=== PATIENT | female | born 1950 | race African-American/Black ===

== ENCOUNTER 2017-12-06 11:12 | Inpatient (IN) ==
[2017-12-06] MEDS ORDERED: SODIUM CHLORIDE 0.9% 500 ML IV STA (11:47)
[2017-12-06 11:54] LABS: Basophils % 0.7 % (0.0-0.8); Eosinophils # 0.1 10*3/uL (0.0-0.87); Hematocrit 24.6 VOL% (35.7-47.0); Hemoglobin 7.5 GM/DL (12.0-16.0); Immature Granulocytes % 0.2 %; Immature Granulocytes Absolute 0.01 #; Lymphocytes # 1.2 10*3/uL (1.4-4.0); Lymphocytes % 20.1 % (21.3-54.2); Mean Corpuscular HGB Conc 30.5 GM/DL (32-36); Mean Corpuscular Hemoglobin 27 PG (27-34); Mean Corpuscular Volume 88.8 FL (87-102); Mean Platelet Volume 10.7 FL (9.6-12.0); Monocytes # 0.6 10*3/uL (0.11-0.8); Monocytes % 10.6 % (1.7-12.7); Neutrophils # 3.9 10*3/uL (1.4-7.4); Neutrophils % 67.4 % (38.7-73.9); Platelet Count 290 T/CUMM (130-400); Red Blood Count 2.77 MC/CUMM (3.8-5.5); White Blood Count 5.7 T/CUMM (4-12)
[2017-12-06 11:59] LABS: INR 1.1; PT Patient Result 11.4 SECS
[2017-12-06 12:18] LABS: Ammonia 28 UMOL/L (11-32)
[2017-12-06 12:26] LABS: Alanine Aminotransferase 10 U/L (13-56); Albumin 3.2 G/DL (3.4-5.0); Alkaline Phosphatase 80 U/L (45-117); Aspartate Amino Transferase 11 U/L (0-37); Blood Urea Nitrogen 33 MG/DL (7-18); Calcium 9.7 MG/DL (8.5-10.1); Glucose 65 MG/DL (74-106); Magnesium 2.1 MG/DL (1.8-2.4); Osmolality,Calculated 279.7 MOS/KG (273-304); Potassium 4.9 MMOL/L (3.5-5.1); Sodium 138 MMOL/L (136-145); Total Protein 6.9 G/DL (6.4-8.3); Troponin I Only < 0.015 NG/ML (0.00-0.045)
[2017-12-06 12:28] LABS: Lactic Acid 3.1 MMOL/L (0.4-2.0)
[2017-12-06 12:40] LABS: Apearance,Urine Slightly Hazy (Clear); Bilirubin,Urine Negative (Negative); Blood, Urine Negative (Negative); Glucose,Urine (UA) Negative (Negative); Hyaline Casts,Urine 1 /LPF (0-3); Ketones,Urine Negative (Negative); Mucus,Urine Occasional /LPF (Occasional); Nitrite,Urine Negative (Negative); Protein,Urine Negative; RBC,Urine 2 /HPF (0-4); Squamous Epithelial Cell,Urine Occasional /HPF (0-10); Urine Color Yellow (Yellow); Urine Specific Gravity 1.009 (1.001-1.035); Urine Urobilinogen < 2.0 EU/DL (0.2-1.0); WBC,Urine 11 /HPF (0-6)
[2017-12-06] MEDS ORDERED: LEVOFLOXACIN INJ 100 ML IV ONE (13:13)
[2017-12-06] MEDS: LEVOFLOXACIN INJ 500 MG in PREMIX 1 EACH IV SCH (13:15)
[2017-12-06] MEDS ORDERED: SODIUM CHLORIDE 0.9% 1,000 ML IV PRN (13:32)
[2017-12-06 14:08] LABS: % Iron Saturation 18.2 % (18-50); Ferritin 180.9 ng/ml (8-252)
[2017-12-06 14:08] LABS: ABG Base Excess 1.2 MMOL/L (-2.5-2.5); ABG HCO3 25.1 MMOL/L (20-26); ABG Oxygen Saturation 96.3 % (95-100); ABG PCO2 36.3 MM HG (35-48); ABG PH 7.457 (7.35-7.45); ABG PO2 87.4 MM HG (80-95); ABG TCO2 26.2 MMOL/L (23-27); Allen Test Positive; Pt O2 Delivery Device Room Air
[2017-12-06] MEDS: SODIUM CHLORIDE 0.9% 1,000 ML IV SCH (15:00)
[2017-12-06] MEDS: PIPERACILLIN/TAZOBACTAM 3,375 MG in SODIUM CHLORIDE 0.9% 100 ML IV SCH ×2 (15:20→22:36)
[2017-12-06] MEDS ORDERED: PIPERACILLIN/TAZOBACTAM 3,375 MG VIAL IV ONE (16:24)
[2017-12-06] MEDS ORDERED: DEXTROSE 50% 25 GM/50 ML VIAL IV ONE (17:21)
[2017-12-06] MEDS: PANTOPRAZOLE 40 MG VIAL IV SCH (21:35)
[2017-12-07] MEDS: SODIUM CHLORIDE 0.9% 1,000 ML IV SCH ×2 (02:11→21:01)
[2017-12-07 06:02] LABS: Basophils # 0.1 10*3/uL (0.0-0.2); Basophils % 0.8 % (0.0-0.8); Eosinophils # 0.1 10*3/uL (0.0-0.87); Eosinophils % 1.3 % (0.00-10.9); Hematocrit 31.3 VOL% (35.7-47.0); Immature Granulocytes % 0.3 %; Immature Granulocytes Absolute 0.02 #; Lymphocytes # 0.8 10*3/uL (1.4-4.0); Lymphocytes % 12.9 % (21.3-54.2); Mean Corpuscular HGB Conc 33.5 GM/DL (32-36); Mean Corpuscular Hemoglobin 28 PG (27-34); Mean Corpuscular Volume 83.7 FL (87-102); Mean Platelet Volume 10.4 FL (9.6-12.0); Monocytes # 0.8 10*3/uL (0.11-0.8); Monocytes % 12.1 % (1.7-12.7); Neutrophils # 4.5 10*3/uL (1.4-7.4); Neutrophils % 72.6 % (38.7-73.9); Platelet Count 242 T/CUMM (130-400); Red Blood Count 3.74 MC/CUMM (3.8-5.5); Red Cell Distribution Width 14.6 % (9.3-17.3); White Blood Count 6.2 T/CUMM (4-12)
[2017-12-07 06:09] LABS: Hemoglobin 10.5 GM/DL (12.0-16.0)
[2017-12-07] MEDS: PIPERACILLIN/TAZOBACTAM 3,375 MG in SODIUM CHLORIDE 0.9% 100 ML IV SCH ×3 (06:10→23:09)
[2017-12-07 06:36] LABS: Alanine Aminotransferase < 9 U/L (13-56); Albumin 2.9 G/DL (3.4-5.0); Alkaline Phosphatase 81 U/L (45-117); Aspartate Amino Transferase 10 U/L (0-37); Blood Urea Nitrogen 26 MG/DL (7-18); Calcium 8.7 MG/DL (8.5-10.1); Glucose 70 MG/DL (74-106); Osmolality,Calculated 281.4 MOS/KG (273-304); Potassium 4.4 MMOL/L (3.5-5.1); Sodium 140 MMOL/L (136-145); Total Protein 6.4 G/DL (6.4-8.3)
[2017-12-07] MEDS: PANTOPRAZOLE 40 MG VIAL IV SCH ×2 (09:18→20:57)
[2017-12-07] MEDS: LEVOFLOXACIN INJ 500 MG in PREMIX 1 EACH IV SCH (13:49)
[2017-12-08] MEDS: PIPERACILLIN/TAZOBACTAM 3,375 MG in SODIUM CHLORIDE 0.9% 100 ML IV SCH (06:08)
[2017-12-08] MEDS: PANTOPRAZOLE 40 MG VIAL IV SCH (09:59)
[2017-12-08] MEDS: SODIUM CHLORIDE 0.9% 1,000 ML IV SCH ×2 (10:00→18:47)
[2017-12-08] MEDS: LEVOFLOXACIN INJ 500 MG in PREMIX 1 EACH IV SCH (13:20)
[2017-12-08] MEDS: cefTRIAXone 1,000 MG in SYRINGE 1 EACH IV SCH (13:20)
[2017-12-08] MEDS: CARVEDILOL 3.125 MG TABLET PO SCH (21:35)
[2017-12-08] MEDS: PANTOPRAZOLE 40 MG TABLET PO SCH ×2 (21:35→21:40)
[2017-12-09 06:06] LABS: Basophils % 0.4 % (0.0-0.8); Eosinophils # 0.1 10*3/uL (0.0-0.87); Eosinophils % 2.2 % (0.00-10.9); Hematocrit 33.2 VOL% (35.7-47.0); Hemoglobin 10.7 GM/DL (12.0-16.0); Immature Granulocytes % 0.7 %; Immature Granulocytes Absolute 0.04 #; Lymphocytes # 0.8 10*3/uL (1.4-4.0); Lymphocytes % 14.9 % (21.3-54.2); Mean Corpuscular HGB Conc 32.2 GM/DL (32-36); Mean Corpuscular Hemoglobin 28 PG (27-34); Mean Corpuscular Volume 86.5 FL (87-102); Mean Platelet Volume 10.6 FL (9.6-12.0); Monocytes # 0.8 10*3/uL (0.11-0.8); Monocytes % 14.9 % (1.7-12.7); Neutrophils # 3.7 10*3/uL (1.4-7.4); Neutrophils % 66.9 % (38.7-73.9); Platelet Count 226 T/CUMM (130-400); Red Blood Count 3.84 MC/CUMM (3.8-5.5); White Blood Count 5.5 T/CUMM (4-12)
[2017-12-09 06:37] LABS: Calcium 8.2 MG/DL (8.5-10.1); Magnesium 1.6 MG/DL (1.8-2.4); Osmolality,Calculated 275.7 MOS/KG (273-304); Potassium 3.6 MMOL/L (3.5-5.1)
[2017-12-09] MEDS ORDERED: CLOPIDOGREL 75 MG TABLET PO SCH (09:00)
[2017-12-09] MEDS: CARVEDILOL 3.125 MG TABLET PO SCH ×2 (11:01→21:48)
[2017-12-09] MEDS: PANTOPRAZOLE 40 MG TABLET PO SCH ×2 (11:01→21:48)
[2017-12-09] MEDS: SODIUM CHLORIDE 0.9% 1,000 ML IV SCH (11:01)
[2017-12-09] MEDS: LEVOFLOXACIN INJ 500 MG in PREMIX 1 EACH IV SCH (12:26)
[2017-12-09] MEDS: cefTRIAXone 1,000 MG in SYRINGE 1 EACH IV SCH (12:27)
[2017-12-10] MEDS: PANTOPRAZOLE 40 MG TABLET PO SCH ×2 (09:05→21:12)
[2017-12-10] MEDS: CARVEDILOL 3.125 MG TABLET PO SCH ×2 (09:05→21:12)
[2017-12-10] MEDS: LEVOFLOXACIN INJ 500 MG in PREMIX 1 EACH IV SCH (13:34)
[2017-12-10] MEDS: cefTRIAXone 1,000 MG in SYRINGE 1 EACH IV SCH (13:34)
[2017-12-10] MEDS ORDERED: MAGNESIUM CITRATE 300 ML BOTTLE PO ONE (13:43)
[2017-12-10] MEDS ORDERED: MAGNESIUM SULF RIDER 2 GM in PREMIX 1 EACH IV ONE (13:50)
[2017-12-10] MEDS: MAGNESIUM OXIDE 400 MG TABLET PO SCH ×2 (15:18→21:12)
[2017-12-10] MEDS: CITALOPRAM 20 MG TABLET PO SCH (21:11)
[2017-12-10] MEDS: ATORVASTATIN 40 MG TABLET PO SCH (21:12)
[2017-12-11 07:58] LABS: Basophils % 0.6 % (0.0-0.8); Eosinophils # 0.1 10*3/uL (0.0-0.87); Eosinophils % 2.1 % (0.00-10.9); Hematocrit 35.9 VOL% (35.7-47.0); Hemoglobin 11.5 GM/DL (12.0-16.0); Immature Granulocytes % 0.3 %; Immature Granulocytes Absolute 0.02 #; Lymphocytes # 0.9 10*3/uL (1.4-4.0); Lymphocytes % 13.9 % (21.3-54.2); Mean Corpuscular Hemoglobin 28 PG (27-34); Mean Corpuscular Volume 86.1 FL (87-102); Mean Platelet Volume 10.7 FL (9.6-12.0); Monocytes # 0.7 10*3/uL (0.11-0.8); Monocytes % 10.8 % (1.7-12.7); Neutrophils # 4.8 10*3/uL (1.4-7.4); Neutrophils % 72.3 % (38.7-73.9); Platelet Count 263 T/CUMM (130-400); Red Blood Count 4.17 MC/CUMM (3.8-5.5); Red Cell Distribution Width 14.3 % (9.3-17.3); White Blood Count 6.6 T/CUMM (4-12)
[2017-12-11 08:26] LABS: Calcium 8.7 MG/DL (8.5-10.1); Osmolality,Calculated 279.5 MOS/KG (273-304); Potassium 3.4 MMOL/L (3.5-5.1)
[2017-12-11] MEDS ORDERED: FUROSEMIDE 20 MG TABLET PO SCH (09:00)
[2017-12-11] MEDS ORDERED: FAMOTIDINE 20 MG TABLET PO SCH (09:00)
[2017-12-11] MEDS: MAGNESIUM OXIDE 400 MG TABLET PO SCH ×2 (09:42→21:18)
[2017-12-11] MEDS: SPIRONOLACTONE 25 MG TABLET PO SCH (09:42)
[2017-12-11] MEDS: CARVEDILOL 3.125 MG TABLET PO SCH ×2 (09:42→21:18)
[2017-12-11] MEDS: PANTOPRAZOLE 40 MG TABLET PO SCH ×2 (09:42→21:18)
[2017-12-11] MEDS: LOSARTAN 50 MG TABLET PO SCH (09:42)
[2017-12-11] MEDS ORDERED: PROPOFOL 200 MG/20 ML VIAL IV ONE (10:04)
[2017-12-11] MEDS ORDERED: LIDOCAINE 2% 5 ML VIAL ONE (10:04)
[2017-12-11] MEDS: cefTRIAXone 1,000 MG in SYRINGE 1 EACH IV SCH (14:20)
[2017-12-11] MEDS: FUROSEMIDE 40 MG TABLET PO SCH (14:20)
[2017-12-11] MEDS: POTASSIUM CHLORIDE 20 MEQ/15 ML UDCUP PO SCH (14:21)
[2017-12-11] MEDS: CITALOPRAM 20 MG TABLET PO SCH (21:18)
[2017-12-11] MEDS: ATORVASTATIN 40 MG TABLET PO SCH (21:18)
[2017-12-12 06:14] LABS: Basophils % 0.7 % (0.0-0.8); Eosinophils # 0.1 10*3/uL (0.0-0.87); Eosinophils % 2.4 % (0.00-10.9); Hematocrit 33.7 VOL% (35.7-47.0); Hemoglobin 10.8 GM/DL (12.0-16.0); Immature Granulocytes % 0.3 %; Immature Granulocytes Absolute 0.02 #; Lymphocytes % 16.2 % (21.3-54.2); Mean Corpuscular Hemoglobin 28 PG (27-34); Mean Platelet Volume 10.6 FL (9.6-12.0); Monocytes # 0.6 10*3/uL (0.11-0.8); Monocytes % 10.5 % (1.7-12.7); Neutrophils # 4.1 10*3/uL (1.4-7.4); Neutrophils % 69.9 % (38.7-73.9); Platelet Count 239 T/CUMM (130-400); Red Blood Count 3.92 MC/CUMM (3.8-5.5); Red Cell Distribution Width 14.6 % (9.3-17.3); White Blood Count 5.9 T/CUMM (4-12)
[2017-12-12 06:50] LABS: Calcium 8.5 MG/DL (8.5-10.1); Osmolality,Calculated 291.7 MOS/KG (273-304); Potassium 3.7 MMOL/L (3.5-5.1)
[2017-12-12] MEDS: CARVEDILOL 3.125 MG TABLET PO SCH (09:42)
[2017-12-12] MEDS: SPIRONOLACTONE 25 MG TABLET PO SCH (09:42)
[2017-12-12] MEDS: MAGNESIUM OXIDE 400 MG TABLET PO SCH (09:42)
[2017-12-12] MEDS: LOSARTAN 50 MG TABLET PO SCH (09:42)
[2017-12-12] MEDS: PANTOPRAZOLE 40 MG TABLET PO SCH (09:42)
[2017-12-12] MEDS: POTASSIUM CHLORIDE 20 MEQ/15 ML UDCUP PO SCH (09:43)
[2017-12-12] MEDS: FUROSEMIDE 40 MG TABLET PO SCH (09:43)
[2017-12-12 11:56] VITALS: BP 134/73
[2017-12-12] MEDS: cefTRIAXone 1,000 MG in SYRINGE 1 EACH IV SCH (12:48)
== END 2017-12-12 15:14 | disposition swing bed (61) | DRG 871 ==
LOC: EDUNIT# → N.ED 11:12 → SUATTDRO 13:23 → N.EDINP 13:23 → N.5E 17:09
PROVIDERS: ADMIT Internal Medicine; ATTEND Internal Medicine